=== PATIENT | female | born 1950 | race Caucasian/White ===

== ENCOUNTER → 2016-06-11 | Outpatient (CLI) | payer OTHER | LOC: RAD 09:19 | DX: Z00.00 Encounter for general adult medical examination without abnormal findings (principal); D73.89 Other diseases of spleen ==

== ENCOUNTER → 2016-09-21 | Outpatient (CLI) | payer OTHER | LOC: RAD 09:41 | DX: R04.2 Hemoptysis (principal) ==

== ENCOUNTER → 2018-01-21 | Outpatient (CLI) | payer OTHER | LOC: RAD 10:35 | DX: M51.16 Intervertebral disc disorders with radiculopathy, lumbar region (principal); D73.4 Cyst of spleen ==

== ENCOUNTER 2019-07-21 08:43 | Day surgery (SDC) | payer OTHER ==
[~2019-07-21] VITALS: Ht 154.9 cm; Wt 71.7 kg
--- NOTE | ~2019-07-21 | O ---
[facility] [place] [address] OPERATIVE REPORT Name: NATALIA MCGEE Room #: 453-P [facility]..#: [id number] Admission: 07/21/19 Attend Phys: Gurjit Boles MD Discharge: Date of : 48 Report #: [id number] THIS REPORT FOR: cc: El Brown MD,El Boles,Gurjit Real MD ~ CC: Edilson Boles DATE OF SERVICE: 07/21/2019 PREOPERATIVE DIAGNOSIS: Cholecystitis with cholelithiasis. POSTOPERATIVE DIAGNOSIS: Cholecystitis with cholelithiasis. PROCEDURE PERFORMED: Laparoscopic cholecystectomy with cholangiogram. SURGEON: Gurjit Boles MD ANESTHESIA: General anesthesia. COMPLICATIONS: None. ESTIMATED BLOOD LOSS: 5 mL. DESCRIPTION OF PROCEDURE: With the patient under general anesthesia, IV antibiotic was administered. Abdomen was prepped and draped in sterile fashion. Timeout was performed. A 0.25% Marcaine was used to anesthetize the skin infraumbilically. A 2 cm incision was made infraumbilically. Fascia was identified, grasped with hemostat. Fascia was then opened under visualization, 0 Vicryl suture placed on the fascia edges for retraction. With the stay sutures lifted anteriorly, Veress needle was then placed through the posterior fascia, and peritoneum. Abdominal cavity was insufflated with CO2. Pneumoperitoneum was established without difficulty. The 11 mm trocar was then placed into the pneumoperitoneum under visualization. A 10 mm scope was then used. The patient had quite a bit of adhesion surrounding the gallbladder consistent with chronic inflammation. Two 5 mm trocars were placed in the right upper quadrant and a 5 mm trocar was placed in right epigastrium. The stomach was pretty distended with gas. OG was placed by Anesthesia, which was successful in decompressing the stomach. The patient was placed in a reverse Trendelenburg position, right side tilted up. The gallbladder was then identified, grasped with hemostat. The adhesions were taken down away from the gallbladder also from the liver lateral to the gallbladder. The gallbladder was completely freed. A 2nd grasper was placed on the neck of the gallbladder. Peritoneum was dissected free laterally and then medially. The lymph node over [address] [address] OPERATIVE REPORT Name: NATALIA MCGEE Room #: 453-P REG [facility]#: [id number] Admission: 07/21/19 Attend Phys: Gurjit Boles MD Discharge: Date of : 48 Report #: [id number] the artery was identified. The artery overlapped the cystic duct. I went ahead and isolated the cystic artery. The cystic artery was clipped x 2 proximally, 1 distally and then divided. This allowed exposure of the triangle of Calot completely. The window was opened from medial to lateral direction. The cystic duct was noted to join the common duct. Clip was placed here. Opening was made just proximal to the clip and the cystic duct, initially I had difficulty getting the catheter thread in and injection was performed and the catheter had popped out and leaked. The second opening was made just proximal to the first opening. I was able to insert the cholangiogram catheter much easier this time. Fluoroscopic cholangiogram was obtained. The previous leaked contrast was irrigated and suctioned out. Repeat injection was performed after the second placement. Common duct filled out well. The cholangiogram catheter identified in the cystic duct. No filling defect in the common duct. Catheter was then removed. The proximal cystic duct was then clipped x 2. The cystic duct was then divided. There was a small posterior artery branch this was clipped and divided also. Gallbladder was free from the liver bed. Gallbladder was retrieved through the infraumbilical port. Gallbladder did contain small stones, also cholesterolosis. Liver bed was checked, hemostasis obtained. The clips were intact. Irrigation was aspirated out. Trocars then removed under visualization. The fascia defect of the umbilicus was closed with [id number] 0 Vicryl x 2. Skin was irrigated, closed with 5-0 PDS. Steri-Strip applied. Band-Aid was used. The patient was awakened and taken to recovery room, having tolerated the procedure well. By: [id number] Gurjit Boles MD /nt
[~2019-07-21 08:43] MED LIST: ALBUTEROL2.5 MG/0.5 INH; BUSPIRONE HCL10 MG PO; HYDROCHLOROTHIA25 M2 PO; LOSARTAN POTAS100 MG PO; MECLIZINE HCL25 MG PO; OMEPRAZOLE 20 M20 M1 PO; SIMVASTATIN40 MG PO; SINGULAIR 10 MG10 M1 PO; SYNTHROID50 MCG PO; TYLENOL EXTRA500 MG PO; VENTOLIN HFA 1818 GM INH
[2019-07-21 09:33] LABS: CREATININE 1.2 mg/dL (0.6-1.0); POTASSIUM 3.5 mmol/L (3.5-5.1)
[2019-07-21 09:54] LABS: HEMATOCRIT 41.3 % (37.0-47.0); HEMOGLOBIN 13.5 gm/dL (12.0-15.0)
[2019-07-21 10:06] VITALS: BP 114/63
--- NOTE | 2019-07-21 13:04 | H ---
[facility] [place] [address] HISTORY AND PHYSICAL Name: NATALIA MCGEE Room #: 150-6 [facility] M.R.#: [id number] Admission: 07/21/19 Attend Phys: Gurjit Boles MD Discharge: Date of : 48 Report #: [id number] THIS REPORT FOR: //name// CC: Edilson Boles PREOPERATIVE DIAGNOSIS: Cholecystitis with cholesterolosis/soft stone. HISTORY OF PRESENT ILLNESS: The patient is a 68-year-old who was seen by Dr. Brown for physical exam. The patient complained to Dr. Brown, about the right upper quadrant pain. This has been going on for several years on and off basis. The patient says she had an ultrasound done years ago and it was reportedly normal. For the last month, she has been having painful attacks generally every night after eating, especially trouble with spicy and foods with high fat. She has only been able to eat lean meats and fish. Symptoms occur at night often. She has bloating. No nausea, no vomiting. She has had weight gain. The patient has sweats, clammy. The patient has been taking H2 blockers without success. Occasional diarrhea. No increased gas. The patient had an ultrasound, which showed at least 3 rounded hypoechoic structure along the gallbladder, measuring 3 mm. There felt to be adherent stones or polyps. Because of the symptomatic nature, recommending that she have her gallbladder removed. The patient is brought in for procedure. PAST MEDICAL HISTORY: History of seasonal asthma. History of high blood pressure, history of elevated cholesterol. The patient denies heart disease, denies diabetes, denies liver disease, denies kidney disease, denies bleeding issue. Denies history of blood clot. The patient did have a stress test not too long ago, which was negative. MEDICATIONS: Synthroid, simvastatin, Singulair, buspirone, omeprazole, Tylenol, meclizine, Ventolin HFA, hydrochlorothiazide, losartan. ALLERGIES: She is allergic to MORPHINE, ANTIHISTAMINE, BETA ERIK, ZITHROMAX, ERYTHROMYCIN, BIAXIN. FAMILY HISTORY: Father had lung cancer and also of heart attack. Mother has history of stroke. Cancer in the family, diabetes in the family, heart problems, stroke, thyroid disease in the family. There is family history of gallbladder disease, both mother and grandmother have had their gallbladder removed. 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 She does not smoke and does not drink. REVIEW OF SYSTEMS: The patient has vertigo symptoms. No chest pain, shortness of breath. No [place] [address] HISTORY AND PHYSICAL Name: NATALIA MCGEE Room #: 150-6 [facility] M..#: [id number] Admission: 07/21/19 Attend Phys: Gurjit Boles MD Discharge: Date of : 48 Report #: [id number] PHYSICAL EXAMINATION: GENERAL: The patient is an elderly female, in no acute distress. HEENT: Pupils react to light. Extraocular muscles are intact. Oropharynx is clear. NECK: Soft and supple. LUNGS: Clear to auscultation. HEART: Regular rate and rhythm. No murmur or gallop. ABDOMEN: Soft with mild tenderness in right upper quadrant. No mass, guarding or rigidity. No mass detected. No ascites. EXTREMITIES: No cyanosis, clubbing or edema. NEUROLOGIC: Motor function is intact. Sensory exam is normal. IMPRESSION: The patient is 68-year-old with abdominal pain, right upper quadrant for many years. Her symptoms are consistent with gallbladder disease. Ultrasound is abnormal showing 3 mm size rounded density, which could be adherent stones or cholesterolosis. The patient is recommended to have her gallbladder removed to treat her symptomatic cholecystitis. The patient wishes to proceed. She understands the procedure, risks involved. Risk of bleeding, infection, common bile duct injury, bile leak was discussed. The patient wishes to proceed. <ELECTRONICALLY SIGNED> By: Gurjit Boles MD 07/21/19 1304 30 50 Gurjit Boles MD /nt
--- NOTE | 2019-07-21 16:56 | EKG ---
[facility] [place] [address] ELECTROCARDIOGRAM REPORT Name: NATALIA MCGEE Room #: 150-6 [facility] M.R.#: [id number] Admission: 07/21/19 Attend Phys: Gurjit Boles MD Discharge: Date of : 48 Report #: [id number] THIS REPORT FOR: cc: El Brown MD, Christopher B. MD Couchonnal, Luis F. 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
[2019-07-21 19:26] VITALS: BP 127/68
[2019-07-22 00:01] VITALS: BP 88/56
[2019-07-22 00:04] VITALS: BP 94/50
[2019-07-22 04:10] VITALS: BP 107/58
--- NOTE | 2019-07-22 04:41 | NUR ---
ADMITTED FROM PACU UNDER 'S ORDER. S/P LAP JAYLENE. DRESSING DCI WITH BANDAIDS ON. VSS. PAIN MANAGED PER MD ORDER. TOLERATED CLR LIQ GREAT OVERNIGHT. ABLE TO AMBULATE TO BATHROOM, VOIDED SEVERAL TIMES WITHOUT ANY DIFFICULY. NO S/S ACUTE DISTRESS NOTED OR REPORTED AT THIS TIME. WILL CONT TO MONITOR FOR ANY CHANGES IN CONDITION.
[2019-07-22 07:25] VITALS: BP 96/57
[2019-07-22] MEDS ORDERED: NORCO 5-325 TA1 EAC1 PO (12:56)
[2019-07-22 13:32] VITALS: BP 96/57
--- NOTE | 2019-07-22 14:02 | NUR ---
Assumed pt care at 7am.Pt in bed very pleasant and excited about going home today.Assessment completed.vss.Pt tolerated med and diet.Dr Boles here after lunch, dc order noted.Pt ambulated in hallways with sba and good endurance noted.Dc summary completed and reviewed with pt.Saline lock dc'd.At 1358,pt dc home with brother in stable condition per wc.Will continue to monitor.
--- NOTE | 2019-07-22 16:22 | NUR ---
PT ADMITTED RELATED TO LAP CHOLECYSTECTOMY. CM REVIEWED CHART AND SPOKE WITH CARE TEAM. CM MET WITH PT AT BEDSIDE THIS DAY. PT IS A&O X4. CM ROLE INTRODUCED. PT INDICATED SHE LIVES IN A HOUSE AND THAT HE SON LIVES WITH HER. SHE INDICATED THAT THERE ARE 2 STEPS TO ENTER AND NONE INSIDE. PT INDICATED SHE HAS A FWW FOR USE AT NIGHT AND IN MORNING DUE TO BACK PAIN. PT INDICATED SHE IS EMPLOYED OUTSIDE OF HOME AND THAT SHE HAS NO HH OR SKILLED HISTORY. PT INDICATED SHE PLANS TO RETURN HOME TODAY ONCE CLEARED. NO OTHER CM INTERVENTION INDICATED. CASE CLOSED.
--- NOTE | 2019-07-22 17:07 | PATH ---
[facility] [address] [place] [address] PATHOLOGY RPT PROCEDURE Name: PIPPAMIRNA Gipson Room #: DEP [facility] M.R.#: [id number] Admission: 07/21/19 Date of : 48 Discharge: 07/22/19 Report #: [id number] Path Case #: [id number] [facility] Accession Number: [id number] . 01 Material submitted: . gallbladder - GALLBLADDER AND CONTENTS . 01 Clinical history: . cholecystitis . 02 Diagnosis: Gallbladder and contents, cholecystectomy: - Multiple cholesterol polyps; negative for dysplasia. - Moderate chronic cholecystitis. - Incidental reactive lymph node. . (IUV:mml; 07/22/2019) QL 07/22/2019 1417 Local . 02 Electronically signed: . Akosua Alonso MD, Pathologist NPI- [id number] . 01 Gross description: . The specimen is received in formalin labeled "Pippa, Mirna, gallbladder and contents" and consists of a previously opened gallbladder measuring 6.5 x 2.0 x 1.0 cm. The margin is inked black and the hepatic margin blue. The mucosa is green-brown with multiple scattered polyps measuring between 0.1 cm and 0.5 cm. The wall averages 0.1 cm. No additional mass lesions are identified. Adjacent the gallbladder neck is a lymph node measuring 0.9 cm. The specimen is entirely submitted as follows: . A1-A2: Margin and neck A3-A8: Fundus A9: Lymph node (SDY; 07/21/2019) SYU/SYU 07/21/2019 1650 Local . 02 Pathologist provided ICD-10: K81.1, K82.4 . 02 CPT . 212501 Specimen Comment: A courtesy copy of this report has been sent to [phone] Specimen Comment: Report sent to Performed at: [address] [place] [address] PATHOLOGY RPT PROCEDURE Name: MIRNA MCGEE Room #: DEP [facility]#: [id number] Admission: 07/21/19 Date of : 48 Discharge: 07/22/19 Report #: [id number] Path Case #: [id number] [facility] Sarwat Vu [address] [place] [address] [address], [place], [place] [id number] MD Keo Weiner MD Phone: [phone] Performed at: [address] [id number] MD Akosua Alonso MD Phone: [phone]
== END 2019-07-22 13:58 | disposition home or self-care (01) ==
LOC: OR 08:43 → TBA 08:46 → OR 09:39 → 4W 19:11 → OR 07-22 13:58
PROVIDERS: Surgery
DX: K81.1 Chronic cholecystitis (principal); R59.0 Localized enlarged lymph nodes; I10 Essential (primary) hypertension; E78.00 Pure hypercholesterolemia, unspecified; E03.9 Hypothyroidism, unspecified; J45.909 Unspecified asthma, uncomplicated; F41.9 Anxiety disorder, unspecified; K21.9 Gastro-esophageal reflux disease without esophagitis; Z98.890 Other specified postprocedural states; Z79.899 Other long term (current) drug therapy; Z87.891 Personal history of nicotine dependence; Z91.040 Latex allergy status; Z88.8 Allergy status to other drugs, medicaments and biological substances; Z82.49 Family history of ischemic heart disease and other diseases of the circulatory system; Z83.3 Family history of diabetes mellitus; Z80.1 Family history of malignant neoplasm of trachea, bronchus and lung; Z82.3 Family history of stroke; Z83.79 Family history of other diseases of the digestive system
CPT/HCPCS: 10047; 50010; 50101; 50249; 50411; 50555; 50558; 51489; 53307; 53310; 55245; 55317; 56462; 56525; 56526; 62110; 62900; 70005